=== PATIENT | male | born 1950 | race American Indian/Alaskan Native ===

== ENCOUNTER 2018-02-04 22:25 | Emergency (ER) | payer MEDICARE, OTHER ==
--- NOTE | 2018-02-04 22:47 | Emergency Department Report ---
ED Abdominal Pain HPI - General Chief Complaint: Abdominal Pain Stated Complaint: BPH/CAN'T URINATE Time Seen by Provider: 02/04/18 22:46 Source: patient Mode of arrival: Ambulatory Limitations: No Limitations - History of Present Illness Initial Comments: 67-year-old male presents with a abdominal pain 1 day. Patient reports that he has not been able to urinate since about 1 PM. Patient reports he has had symptoms like this in the past secondary to BPH. She denies fever cough vomiting diarrhea or any other urinary symptoms. MD Complaint: abdominal pain -: Gradual, This afternoon Location: LLQ, RLQ Radiation: none Migration to: no migration Severity: moderate Quality: cramping, aching Consistency: constant Improves With: nothing Worsens With: nothing Associated Symptoms: denies: nausea, vomiting, diarrhea, chills, constipation - Related Data Allergies Allergy/AdvReac Type Severity Reaction Status Date / Time No Known Allergies Allergy Unverified 02/04/18 22:41 ED Review of Systems ROS: Stated complaint: BPH/CAN'T URINATE Other details as noted in HPI Constitutional: denies: chills, fever Eyes: denies: eye pain, eye discharge, vision change ENT: denies: ear pain, throat pain Respiratory: denies: cough, shortness of breath, wheezing Cardiovascular: denies: chest pain, palpitations Endocrine: no symptoms reported Gastrointestinal: abdominal pain. denies: nausea, diarrhea, constipation Genitourinary: as per HPI. denies: urgency, dysuria Musculoskeletal: denies: back pain, joint swelling, arthralgia Skin: denies: rash, lesions Neurological: denies: headache, weakness, paresthesias Psychiatric: denies: anxiety, depression Hematological/Lymphatic: denies: easy bleeding, easy bruising ED Past Medical Hx - Past Medical History Previous Medical History?: Yes Hx Hypertension: Yes Additional medical history: BPH - Surgical History Past Surgical History?: No - Social History Smoking Status: Never Smoker Substance Use Type: None ED Physical Exam - General Limitations: No Limitations General appearance: alert, in no apparent distress - Head Head exam: Present: atraumatic, normocephalic - Eye Eye exam: Present: normal appearance - ENT ENT exam: Present: mucous membranes moist - Neck Neck exam: Present: normal inspection - Respiratory Respiratory exam: Present: normal lung sounds bilaterally. Absent: respiratory distress - Cardiovascular Cardiovascular Exam: Present: regular rate, normal rhythm. Absent: systolic murmur, diastolic murmur, rubs, gallop - GI/Abdominal GI/Abdominal exam: Present: soft, tenderness (lower abdominal tenderness), normal bowel sounds. Absent: distended, hyperactive bowel sounds, hypoactive bowel sounds - Rectal Rectal exam: Present: deferred - Extremities Exam Extremities exam: Present: normal inspection - Back Exam Back exam: Present: normal inspection - Neurological Exam Neurological exam: Present: alert, oriented X3 - Psychiatric Psychiatric exam: Present: normal affect, normal mood - Skin Skin exam: Present: warm, dry, intact, normal color. Absent: rash ED Course Vital Signs 02/04/18 02/04/18 02/04/18 22:38 23:30 23:43 Temperature 98.1 F Pulse Rate 115 H 85 91 H Respiratory 18 14 21 Rate Blood Pressure 210/131 149/84 149/84 Blood Pressure [Right] O2 Sat by Pulse 99 96 96 Oximetry 02/05/18 02/05/18 00:00 01:46 Temperature Pulse Rate 94 H 83 Respiratory 19 17 Rate Blood Pressure 153/85 Blood Pressure 156/88 [Right] O2 Sat by Pulse 93 94 Oximetry - Reevaluation(s) Reevaluation #1: 02/05/18 23:55 Per nursing over 700 mL of urine drained status post Moreland catheter placement. Patient reports that symptoms are completely resolved. Awaiting CAT scan. ED Medical Decision Making - Lab Data Result diagrams: 02/04/18 23:25 02/04/18 23:25 Labs 02/04/18 02/04/18 02/04/18 23:20 23:25 23:25 WBC 8.7 RBC 4.70 Hgb 13.0 Hct 38.7 MCV 82 L MCH 28 MCHC 34 RDW 17.0 H Plt Count 192 Lymph % (Auto) 11.2 L [place] % (Auto) 4.3 Eos % (Auto) 0.3 Baso % (Auto) 2.3 H Lymph # 1.0 L [place] # 0.4 Eos # 0.0 Baso # 0.2 H Seg Neutrophils % 81.9 H Seg Neutrophils # 7.1 Sodium 139 Potassium 3.2 L Chloride 99.0 Carbon Dioxide 26 Anion Gap 17 BUN 12 Creatinine 1.2 Estimated GFR > 60 BUN/Creatinine Ratio 10 Glucose 164 H Calcium 9.2 Lipase 36 Urine Color Red Urine Turbidity Clear Urine pH 7.0 Ur Specific [place] 1.003 Urine Protein 30 mg/dl Urine Glucose (UA) Neg Urine Ketones Neg Urine Blood Lg Urine Nitrite Neg Urine Bilirubin Neg Urine Urobilinogen < 2.0 Ur Leukocyte Esterase Neg Urine WBC (Auto) 4.0 Urine RBC (Auto) > 182.0 Urine Bacteria (Auto) 1+ Urine Mucus Few - Radiology Data IMPRESSION: Marked enlargement of prostate gland projecting the base the bladder. Prostatic neoplasm is not excluded. Moreland catheter decompresses the urinary bladder. There is mild bilateral hydroureteronephrosis with perinephric fat stranding and periureteral fat stranding. This may be reactive secondary to urinary bladder outlet obstruction from the enlarged prostate gland. Superimposed infection is not excluded. Correlation with urinalysis suggested. 6 millimeter nonobstructive right renal calculus. Benign bilateral renal cysts. There are least 2 hypodense lesions within the right kidney which may reflect hyperdense cysts. Solid masses are not excluded. Further evaluation by CT of the abdomen with without contrast suggested on a nonemergent outpatient basis. No other gross acute findings. - Medical Decision Making 67-year-old male with history of BPH. Presents chief complaint of urinary retention times greater than 6 hours. Symptoms completely resolved after Moreland placement by nurse. Over 700 mL of urine drained and Moreland catheter. CT negative for acute findings patient should follow urologist with the next available appointment and to return the ED if any new symptoms or problems with the catheter. Critical care attestation.: If time is entered above; I have spent that time in minutes in the direct care of this critically ill patient, excluding procedure time. ED Disposition Clinical Impression: Urinary retention Disposition: - TO HOME OR SELFCARE Is pt being admited?: No Does the pt Need Aspirin: No Condition: Fair Instructions: Urinary Retention in Men (ED), Moreland Catheter Placement and Care (ED) Referrals: MARTHA PEDROZA MD [Staff Physician] - 3-5 Days Time of Disposition: 02:00
[2018-02-04 23:44] LABS: Basophils # (Auto) 0.2 K/mm3 (0.0-0.1); Basophils % (Auto) 2.3 % (0.0-1.8); Eosinophils % (Auto) 0.3 % (0.0-4.3); Hematocrit 38.7 % (35.5-45.6); Lymphocytes % (Auto) 11.2 % (13.4-35.0); Mean Corpuscular HGB Conc 34 % (32-34); Mean Corpuscular Hemoglobin 28 pg (28-32); Mean Corpuscular Volume 82 fl (84-94); Monocytes # (Auto) 0.4 K/mm3 (0.0-0.8); Monocytes % (Auto) 4.3 % (0.0-7.3); Platelet Count 192 K/mm3 (140-440)
[2018-02-05 00:08] LABS: BUN/Creatinine Ratio 10; Blood Urea Nitrogen 12 mg/dL (9-20); Calcium 9.2 mg/dL (8.4-10.2); Hemolysis Index 36; Lipase 36 units/L (13-60)
[2018-02-05 00:24] LABS: Bacteria,Urine 1+ /HPF (Negative); Bilirubin,Urine NEG (Negative); Blood,Urine LG (Negative); Color,Urine Red (Yellow); Mucus,Urine FEW /HPF; RBC,Urine > 182.0 /HPF (0.0-6.0); Urobilinogen,Urine < 2.0 mg/dL (<2.0)
[2018-02-05 01:47] VITALS: BP 156/88
--- NOTE | 2018-02-05 01:50 | Cat Scan Report ---
FINAL REPORT EXAM: CT ABDOMEN PELVIS W CON HISTORY: Abdominal Pain COMPARISON: None available. TECHNIQUE: Contiguous axial images were obtained. Additional sagittal and coronal reformatted images were obtained. Administration of IV contrast given per institution protocol. Images submitted for interpretation. FINDINGS: Linear atelectasis or scarring at the lung bases. Small hiatal hernia. No calcified gallstones or biliary dilatation. Several subcentimeter low-attenuation hepatic lesions. These are too small to accurately characterize by CT, but may reflects cysts. Benign inferior right hepatic lobe cyst measuring 2.0 by 1.4 centimeters. No focal enhancing hepatic mass. No calcified gallstones or biliary dilatation. Homogeneous enhancement the spleen and pancreas. Nodular thickening of the adrenal glands. Spleen measures 12 centimeters. Multiple benign bilateral renal cysts. These are more numerous and larger on the right. The largest renal cyst is at the anterior margin right kidney measuring 6.3 x 6.4 centimeters. At the lateral margin right kidney there is a hypodense lesion measuring 2.0 x 1.8 centimeters (series 2, image 81). Internal Hounsfield units 45. This is indeterminate may reflect a hyperdense cyst. Solid lesion is not excluded. At the inferior margin of the right kidney there is exophytic hypodense lesion measuring 5.9 x 5.5 centimeters. Internal Hounsfield units 27. This may also represent a hyperdense cyst. Solid mass not excluded. 6 millimeter nonobstructive right renal calculus. Mild right-sided hydroureteronephrosis. Mild left-sided hydroureteronephrosis. Mild fat stranding margins of the bilateral ureters and kidneys. Moreland catheter decompresses the urinary bladder. Marked, heterogeneous enlargement of prostate gland projecting the base the bladder. Prostate gland and axial dimension measures approximately 8.0 by 8.8 centimeters and in craniocaudal dimension measures 7.0 centimeters. Large and small bowel loops normal in caliber. No focal inflammatory changes the bowel. Moderate stool in the colon. The appendix is normal in caliber measuring up to 6-7 millimeters in diameter. Lumbar vertebral body heights are preserved. Moderate degenerative changes of the lumbar spine. Benign hemangioma at the L2 level. Moderate severe canal stenosis at the L3-L4 and L4-L5 levels due to facet changes and broad-based disc bulges. IMPRESSION: Marked enlargement of prostate gland projecting the base the bladder. Prostatic neoplasm is not excluded. Moreland catheter decompresses the urinary bladder. There is mild bilateral hydroureteronephrosis with perinephric fat stranding and periureteral fat stranding. This may be reactive secondary to urinary bladder outlet obstruction from the enlarged prostate gland. Superimposed infection is not excluded. Correlation with urinalysis suggested. 6 millimeter nonobstructive right renal calculus. Benign bilateral renal cysts. There are least 2 hypodense lesions within the right kidney which may reflect hyperdense cysts. Solid masses are not excluded. Further evaluation by CT of the abdomen with without contrast suggested on a nonemergent outpatient basis. No other gross acute findings.
== END 2018-02-05 02:25 | disposition home or self-care (01) ==
LOC: ED 22:25
DX: R33.9 Retention of urine, unspecified (principal); N40.0 Benign prostatic hyperplasia without lower urinary tract symptoms
CPT/HCPCS: 36415; 51702; 74177; 80048; 81001; 83690; 85025; 99284; Q9967